=== PATIENT | male | born 1970 | race Caucasian/White ===

== ENCOUNTER → 2018-04-25 | Outpatient (CLI) | payer OTHER ==
[~2018-04-25] MED LIST: FLEXERIL; IBUPROFEN 200200 M1 PO; NABUMETONE 500500 M1 PO; NAPROSYN500 MG; NOHOMEMEDICATIONS; NORCO 5-325 TA1 EACH
== END ==
LOC: ULTRA 15:44
DX: K43.9 Ventral hernia without obstruction or gangrene (principal); R19.04 Left lower quadrant abdominal swelling, mass and lump

== ENCOUNTER → 2020-12-15 | Outpatient (CLI) | payer OTHER ==
[~2020-12-15] MED LIST changes: +PREDNISONE 10 M10 MG PO
== END ==
LOC: MRI 09:50
PROVIDERS: ATTEND Family Medicine
DX: M51.16 Intervertebral disc disorders with radiculopathy, lumbar region (principal); M48.061 Spinal stenosis, lumbar region without neurogenic claudication; M25.78 Osteophyte, vertebrae

== ENCOUNTER → 2020-12-16 | Outpatient (CLI) | payer OTHER ==
[~2020-12-16] VITALS: Ht 27.9 cm; Wt 79.4 kg
[2020-12-16 10:13] VITALS: BP 130/76
--- NOTE | 2020-12-16 10:30 | NUR ---
Pain Clinic Assessment: 1. History of Osteoarthritis: DENIES History of Rheumatoid Arthritis: NO 2. Height: 5 ft. 11 in. 27.9 cm. Weight: 175.0 lb. oz. 79.380 kg. Patient's BMI: 1019.8 3. Vital Signs: BP: 130/76 Pulse: 52 Resp: 16 Temp: 02 Sat: 100 ECG Mon: 4. Pain Intensity: 5 TO 10+ 5. Fall Risk: Dizziness: N Needs help standing or walking: N Fallen in the last 3 months: N Fall risk comments: 6. Patient on Blood Thinner: None 7. History of Hypertension: N 8. Opioid Therapy greater than 6 weeks: N Opiate Contract Signed: 9. Risk Assessment Tool Provided: LOW-0 10. Functional Assessment Tool: 11. Recreational Drug Use: Never Drug Type: Tobacco Use: Never Smoker Tobacco Type: Amount or Packs/day: How Many Years: Alcohol Use: Yes Frequency: Weekly Quant: 2
--- NOTE | 2020-12-22 08:09 | HPC ---
[facility] [place] [address] PAIN MANAGEMENT CONSULTATION Name: GINNY ARELLANO Room #: REG DRISS BañuelosDayana#: [id number] Admission: 12/16/20 Attend Phys: Hong Celis DO Discharge: Date of : 74 Report #: [id number] THIS REPORT FOR: cc: Wyatt Dick MD,Hong Flores MD, DO ~ DOC #: [id number] cc: MD Hong Payne DO DATE OF SERVICE: 12/16/2020 REFERRING PHYSICIAN: Wyatt Dick MD CHIEF COMPLAINT: Low back pain, right buttock and posterolateral thigh pain. HISTORY OF PRESENT ILLNESS: As you know, the patient is a pleasant 49-year-old male who reports acute onset of low back pain, right buttock pain that presented 12/06/2020. The patient denies injury or trauma. He trialed conservative treatment, but did not notice much in the way of improvement. He sought further evaluation through his PCP who sent him off for MRI of the lumbar spine for further evaluation. The findings of the MRI were such the patient was referred on to our clinic to discuss interventional treatment options. The patient reports today his pain is steady and shooting. He describes the pain at a level of 5/10 daily, average of 5/10, worst pain has been is 10+/10. The patient states the pain is exacerbated with "sitting for any length of time," also exacerbated with quick lumbar movement such as twisting and bending. The patient indicates pain is improved with lying down. He has been referred to our service to discuss treatment options for suspected lumbar radiculopathy. PAST MEDICAL HISTORY: None. PAST SURGICAL HISTORY: Right knee surgery. SOCIAL HISTORY: The patient denies tobacco, IV or illicit drug use. Admits to occasional alcohol beverage. He is employed as a customer service manufacturing marketing representative, working, not receiving Workmen's Compensation nor is he trying to obtain disability benefits. He is unaccompanied at today's visit. IMAGING: MRI lumbar spine obtained 12/15/2020 shows L1-2 unremarkable. L2-3 shows mild degenerative changes, mild disk bulge. No central canal or neural foraminal stenosis. L3-4 shows mild disk changes, mild disk bulge with central disk protrusion. No central canal or neural foraminal stenosis. There is osteophyte complex on the left, abutting the L3 nerve root. L4-5 shows moderate degenerative changes, mild broad-based disk bulge. No central canal or neural foraminal stenosis. L5-S1 shows sacralization of the L[place] [address] PAIN MANAGEMENT CONSULTATION Name: GINNY ARELLANO Room #: REG DRISS Flores#: [id number] Admission: 12/16/20 Attend Phys: Hong Celis DO Discharge: Date of : 74 Report #: [id number] Rudimentary disk. No central canal or neural foraminal stenosis. ALLERGIES: IODINE AND SHELLFISH. CURRENT MEDICATIONS: None. REVIEW OF SYSTEMS: Positive for wearing corrective eyewear, asthma, wheezing, low back pain. All other review of systems negative per 12-point review of systems other than those listed in history of present illness. Pain impact score is 29/70, moderate interference of daily activities secondary to pain. PHYSICAL EXAMINATION: VITAL SIGNS: Blood pressure 130/76, pulse is 52, respiratory rate 16 and unlabored. The patient 100% on room air. Height 5 feet 11 inches tall, weight 175 pounds. GENERAL: Well-developed, well-nourished, well-hydrated 49-year-old male, appearing stated age. Pain is rated today around 5-10/10 depending on activity. HEENT: Normocephalic, atraumatic. Pupils equal, round and responsive. He is wearing a mask in compliance with COVID-19 regulations. LUNGS: Appear clear. There is no wheezing, rhonchi or rales. CARDIOVASCULAR: Regular. EXTREMITIES: Show no clubbing, no cyanosis, no edema. MUSCULOSKELETAL: Lower extremity strength equal and symmetrical, 5/5. Muscle bulk and tone equal and symmetrical in comparing left lower extremity to right. Seated straight leg raising negative. Supine straight leg raising positive on the right. OZ test is negative. Modified Gaenslen's positive for axial low back pain. Ankle clonus negative. Babinski is negative. Lumbar provocation testing is met with slight increase in pain, no radiation of symptoms. ASSESSMENT: 1. Lumbar radicular symptoms. 2. Facet arthropathy of lumbar spine. 3. Lumbosacral spondylosis with radiculopathy. PLAN: 1. Based on today's physical exam and history the patient has provided, the description the patient uses in regards to pain as well as location of symptoms, it would appear he is suffering from lumbar radicular pain. The patient apparently has had treatment for lumbar radicular symptoms in the past, undergoing epidural injections with good efficacy. He has been doing well until this acute exacerbation of symptoms that occurred prompting a discussion with his PCP on 12/06/2020. The patient was referred to our clinic to discuss interventional treatment options to address suspected lumbar radiculopathy. We discussed the following with the patient today and treatment options. We discussed physical therapy, stretching exercises and core strengthening as a [facility] [address] [place] [address] PAIN MANAGEMENT CONSULTATION Name: GINNY ARELLANO Room #: REG CLKaushik Flores#: [id number] Admission: 12/16/20 Attend Phys: Hong Celis DO Discharge: Date of : 74 Report #: [id number] treatment course. We discussed medication management utilizing nonsteroidal anti-inflammatory as a baseline pain medication with suggestions of treatment to include neuropathic medications such as amitriptyline, nortriptyline, Cymbalta, Lyrica or gabapentin. We discussed epidural injections under fluoroscopic guidance for which the patient was referred to our clinic. We also discussed surgical options, though given the minimal findings I would not recommend that at this time. After reviewing risks and benefits of all the potential treatment options, the patient chose to undergo lumbar epidural injection under fluoroscopic guidance. 2. The patient has been advised of risks and benefits of a lumbar epidural injection. These risks include, but are not necessarily limited to bleeding, bruising, infection, worsening pain, no relief of pain, also risk of temporary or permanent muscle weakness, temporary or permanent nerve damage, possible paralysis and . The patient states understood and wished to proceed. 3. No medication changes made at today's visit. He will continue current medical therapy as prior prescribed. 4. We plan to see the patient back in followup visit on an as needed basis for the next in the series of lumbar epidural injections. We are hopeful the patient will see good and prolonged benefit with today's epidural injection. PROCEDURE NOTE DESCRIPTION OF PROCEDURE: L5-S1 right parasagittal epidural steroid injection under fluoroscopic guidance. After obtaining written consent, the patient taken back to fluoroscopy suite, placed in prone position with pillow under abdomen to decrease lumbar lordosis. Skin overlying lumbosacral area then prepped and draped in aseptic fashion. The L5-S1 vertebral interspace identified by AP fluoroscopy. Skin and subcutaneous tissue overlying target site injection anesthetized with 3 mL 1% lidocaine. A 20-gauge 3-1/2 inch Tuohy needle advanced under fluoroscopic guidance towards the epidural space using a right parasagittal approach. Epidural space identified using loss of resistance to air technique. Due to a contrast allergy, no contrast agent was used in today's procedure. Needle positioning was confirmed using both AP and lateral fluoroscopy. After negative aspiration for heme or cerebrospinal fluid, 5 mL of a solution containing 2 mL, 40 mg/mL, 80 mg total triamcinolone along with 3 mL of lidocaine 1% injected slowly. Needle retracted correction, flushed with 1 mL of 1% lidocaine, then removed. Sterile bandage placed over injection site. No new motor deficits present in the lower extremities following procedure. The patient tolerated the procedure well, carefully escorted to recovery room in stable condition. No apparent complications. After meeting discharge criteria, the patient discharged home. [address] [address] PAIN MANAGEMENT CONSULTATION Name: GINNY ARELLANO Room #: REG DRISS Flores#: [id number] Admission: 12/16/20 Attend Phys: Hong Celis DO Discharge: Date of : 74 Report #: [id number] DO JEANNETTE Pearson/TRE/AVEL <ELECTRONICALLY SIGNED> By: Hong Celis DO 12/22/20 [id number] Hong Celis DO /nt
== END | disposition home or self-care (01) ==
LOC: PAIN 07:03
PROVIDERS: ATTEND Anesthesiology Pain Medicine
DX: M51.16 Intervertebral disc disorders with radiculopathy, lumbar region (principal); M47.27 Other spondylosis with radiculopathy, lumbosacral region; M47.26 Other spondylosis with radiculopathy, lumbar region; M54.5 Low back pain; Z98.890 Other specified postprocedural states; Z79.899 Other long term (current) drug therapy; Z91.041 Radiographic dye allergy status